=== PATIENT | female | born 1945 | race African-American/Black ===

== ENCOUNTER 2016-10-21 08:58 | Day surgery (SDC) | payer MEDICARE, BC ==
[2016-10-21] VITALS (7 sets, daily range): BP systolic 114–147; BP diastolic 52–63
[~2016-10-21] VITALS: Ht 165.1 cm; Wt 52.6 kg
[~2016-10-21 08:58] MED LIST: cefOXitin Sod 1 GM in D5W 55 ML IVPB ONE
[2016-10-21] MEDS ORDERED: HYDROCHLOROTHIA25 MG ORAL (09:56)
[2016-10-21] MEDS ORDERED: ATENOLOL50 MG ORAL (09:56)
[2016-10-21] MEDS ORDERED: Ropivacaine 5mg/ml Vial 20ml INJ ONE (10:00)
[2016-10-21] MEDS ORDERED: Bupivacaine w/Epi 0.5% 30ml Vial INJ ONE (10:00)
[2016-10-21] MEDS ORDERED: BIOTIN10000 MCG PO (10:01)
[2016-10-21] MEDS ORDERED: FOLIC ACID1 MG ORAL (10:01)
[2016-10-21] MEDS ORDERED: FERROUS SULFAT325 MG ORAL (10:01)
[2016-10-21] MEDS ORDERED: VITAMIN D1000 UNI1 ORAL (10:01)
[2016-10-21] MEDS ORDERED: CRANBERRY200 M1 PO (10:01)
[2016-10-21] MEDS ORDERED: DAILY MULTIPLE1 EACH ORAL (10:01)
[2016-10-21] MEDS ORDERED: Lidocaine 1% MPF 10mg/ml 5ml ONE (11:00)
[2016-10-21] MEDS ORDERED: LR 1000ml ONE (11:00)
[2016-10-21] MEDS ORDERED: Sterile Water Irrig 1000ml IRRIG ONE (11:00)
[2016-10-21] MEDS ORDERED: fentaNYL 100 mcg/2 mL IV ONE (11:00)
[2016-10-21] MEDS ORDERED: Propofol 10mg/ml 20ml IV ONE (11:00)
[2016-10-21] MEDS ORDERED: Dexamethasone 4mg/ml vial ONE (11:00)
[2016-10-21] MEDS ORDERED: NS Irrig 1000ml ONE (11:00)
[2016-10-21] MEDS ORDERED: LR 1000ml 1,000 ML IVLG SCH (11:12)
--- NOTE | 2016-10-21 11:12 | Anethesia Preoperative Eval ---
Anesthesia Pre-op PMH/ROS General Date of Evaluation: Oct 21, 2016 Anesthesiologist: Arcenio ASA Score: ASA 2 Mallampati Score Class I : Soft palate, uvula, fauces, pillars visible Class II: Soft palate, uvula, fauces visible Class III: Soft palate, base of uvula visible Class IV: Only hard plate visible Mallampati Classification: Class II Surgeon: Holden Diagnosis: Endometrial hyperplasia Surgical Procedure: D&C, hysteroscopy Anesthesia History: none Family History: no anesthesia problems Allergies: Coded Allergies: PROCHLORPERAZINE (Verified Allergy, Unknown, 10/20/16) TETANUS VACCINES AND TOXOID (Verified Allergy, Unknown, 10/20/16) Medications: see eMAR Past Medical History Cardiovascular: Reports: HTN, Denies: CAD, [place], arrhythmia, other, valve dz Pulmonary: Denies: COPD, ASTRID, asthma, other Gastrointestinal/Genitourinary: Denies: CRI, ESRD, GERD, other Neurologic/Psychiatric: Denies: CVA, TIA, dementia, depression/anxiety, other Endocrine: Reports: hypothyroidism, Denies: DM, other, steroids [place]: Denies: [place] (L), [place] (R), cataract (L), cataract (R), glaucoma, other Hematology/Immune: Denies: DVT, anemia, bleeding disorder, other Musculoskeletal/Integumentary: Denies: DDD, DJD, OA, RA, edema, other PSxH Narrative: D&C, BTL, ACDF Anesthesia Pre-op Phys. Exam Physician Exam Last Vital Signs Date Time Temp Pulse Resp B/P Pulse Ox O2 Delivery O2 Flow Rate FiO2 10/21/16 10:03 98.3 57 20 115/58 100 Room Air Constitutional: NAD Cardiovascular: RRR Respiratory: CTA Airway Exam Mallampati Score: Class II MO: full ROM: limited Teeth: intact Anesthesia Pre-op A/P Labs see chart Studies Pre-op Studies: EKG - sr Risk Assessment & Plan Assessment: ASA II Plan: GA Status Change Before Surgery: No Pre-Antibiotics Drug: Cefoxitin 1g Given Within 1 Hr of Incision: Yes Time Given: 11:15 MARIOLA CASILLAS M.D. Oct 21, 2016 11:12
[2016-10-21] MEDS ORDERED: fentaNYL 100 mcg/2 mL IV PRN (11:15)
[2016-10-21] MEDS ORDERED: Hydromorphone 0.5mg/0.5ml inj IVP PRN (11:15)
[2016-10-21] MEDS ORDERED: DiphenhydrAMINE 50mg/ml Inj IVP PRN ×2 (11:15→11:45)
[2016-10-21] MEDS ORDERED: Ketorolac 30mg Inj IV PRN (11:15)
[2016-10-21] MEDS ORDERED: cefOXitin 1gm Inj ONE (11:17)
--- NOTE | 2016-10-21 11:27 | Immediate Post-Op Evaluation ---
Immediate Post-Op Evalulation Immediate Post-Op Evalulation Procedure: D&C, hysteroscopy Date of Evaluation: Oct 21, 2016 Time of Evaluation: 12:07 IV Fluids: 600 Blood Products: 0 Estimated Blood Loss: 0 Urinary Output: 0 Blood Pressure Systolic: 116 Blood Pressure Diastolic: 52 Pulse Rate: 55 Respiratory Rate: 16 O2 Sat by Pulse Oximetry: 100 Temperature (Fahrenheit): 97 Pain Score (1-10): 0 Nausea: No Vomiting: No Complications 0 Patient Status: awake, reacts, patent, none Hydration Status: adequate Drug: Cefoxitin 1g Given Within 1 Hr of Incision: Yes Time Given: 11:15 MARIOLA CASILLAS M.D. Oct 21, 2016 11:27
--- NOTE | 2016-10-21 11:28 | 48 Hour Post Anesthesia Eval ---
Post Anesthesia Evaluation Procedure: D&C, hysteroscopy Date of Evaluation: Oct 21, 2016 Time of Evaluation: 12:43 Blood Pressure Systolic: 144 0: 60 Pulse Rate: 62 Respiratory Rate: 20 Temperature (Fahrenheit): 97.2 O2 Sat by Pulse Oximetry: 98 Airway: patent Nausea: No Vomiting: No Pain Intensity: 0 Hydration Status: adequate Cardiopulmonary Status: at baseline Mental Status/LOC: patient returned to baseline Post-Anesthesia Complications: 0 Follow-up care needed: ready to discharge MARIOLA CASILLAS M.D. Oct 21, 2016 11:28
--- NOTE | 2016-10-21 11:34 | Pre-Procedure Note/Attestation ---
Pre-Procedure Note/Attestation Complete Prior to Procedure Planned Procedure: not applicable Indications for Procedure Pre-Operative Diagnosis: endometrial hyperplasia Attestation I attest that I discussed the nature of the procedure; its benefits; risks and complications; and alternatives (and the risks and benefits of such alternatives ), prior to the procedure, with the patient (or the patient's legal cash applications representative). I attest that, if there was a reasonable possibility of needing a blood transfusion, the patient (or the patient's legal cash applications representative) was given the [facility] standardized written summary, pursuant to the [place] Blood Safety Act ([place] Health and Safety Code # 1645, as amended). I attest that I re-evaluated the patient just prior to the surgery and that there has been no change in the patient's H&P, except as documented below: THUAN DOWD Oct 21, 2016 11:34
[2016-10-21] MEDS ORDERED: D5 1/2NS 1,000 ML IV SCH (11:45)
[2016-10-21] MEDS ORDERED: Tylenol #3 tab (300mg/30mg) ORAL PRN (11:45)
[2016-10-21] MEDS ORDERED: Norco 5mg/325mg tab ORAL PRN (11:45)
[2016-10-21] MEDS ORDERED: Metoclopramide 10mg/2ml Inj IVP PRN (11:45)
[2016-10-21] MEDS ORDERED: HYDROmorphone 1mg/ml Carpuject SUBQ PRN (11:45)
--- NOTE | 2016-10-21 14:46 | Operative Note - Dictated ---
DATE OF OPERATION: 10/21/2016 PREOPERATIVE DIAGNOSIS: Endometrial hyperplasia. POSTOPERATIVE DIAGNOSIS: Bicornuate uterus and polyps. SURGERY: Hysteroscopy, dilation and curettage, polypectomy. SURGEON: Diandra Hatch M.D. ANESTHESIOLOGIST: Dr. Stephens. ANESTHESIA: General endotracheal. PROCEDURE IN DETAIL: After ensuring informed consent, the patient was taken to the operating room, where general anesthesia was induced. The patient was sterilely prepped and draped. Weighted speculum was placed in the vagina. Cervix was dilated to an 8 Hegar dilator. Hysteroscope was placed inside the uterine cavity. Uterine cavity was distended with normal saline. Bicornuate uterus was observed. There was a large polyp in right horn and a smaller one in the ___ horn, both were removed with polyp forceps. The uterus was again visualized and appeared to be normal. Endocervical curettage was performed as well. At the end of the procedure, all instruments were removed from the vagina. Excellent hemostasis was assured. Instrument and lap count was correct x2. The patient was taken to the recovery area, breathing on her own and in stable condition. Diandra Hatch M.D. DR: CLIFF JOB#: [id number] CC:
== END 2016-10-21 14:40 | disposition home or self-care (01) ==
LOC: SUR 08:58
DX: N84.0 Polyp of corpus uteri (principal); D25.0 Submucous leiomyoma of uterus; Q51.3 Bicornate uterus; M50.00 Cervical disc disorder with myelopathy, unspecified cervical region; M48.02 Spinal stenosis, cervical region; D64.9 Anemia, unspecified; I10 Essential (primary) hypertension; E03.9 Hypothyroidism, unspecified; G31.84 Mild cognitive impairment of uncertain or unknown etiology; F41.1 Generalized anxiety disorder; I70.0 Atherosclerosis of aorta; Z87.891 Personal history of nicotine dependence; J30.1 Allergic rhinitis due to pollen; Z79.899 Other long term (current) drug therapy; Z88.8 Allergy status to other drugs, medicaments and biological substances; Z88.7 Allergy status to serum and vaccine
CPT/HCPCS: 58558; J0694; J1100; J2405; J2704; J3010; J7120; 94003; 94150